=== PATIENT | female | born 1955 | race Caucasian/White ===

== ENCOUNTER 2022-09-28 05:25 | Day surgery (SDC) | payer OTHER ==
[~2022-09-28] VITALS: Ht 157.5 cm; Wt 84.4 kg
[~2022-09-28 05:25] MED LIST: AMLO-257 PO; ASPI-1450 PO; ATOR10TA PO; CARV25 PO; FERR325T27 PO; HYDR10TA31 PO; LISI-894 PO
[2022-09-28] MEDS ORDERED: SODIUM CHLORIDE 0.9% 1,000 ML IV ONE (05:30)
[2022-09-28] MEDS ORDERED: DiphenhydrAMINE HCL 50 MG CAPSULE ONE (05:36)
[2022-09-28] MEDS ORDERED: DIAZEPAM 5 MG TABLET ONE (05:36)
[2022-09-28] MEDS ORDERED: ASPIRIN 81 MG CHEWABLE TABLET ONE (05:37)
[2022-09-28 06:26] LABS: BASOPHILS % (AUTO) 0.8 % (0.0-2.0); EOSINOPHILS % (AUTO) 6.9 % (1.0-6.0); HEMATOCRIT 32.4 % (36-46); HEMOGLOBIN 10.9 g/dL (12.0-16.0); LYMPHOCYTES # (AUTO) 1.3 K/uL (1.0-4.8); LYMPHOCYTES % (AUTO) 23.6 % (22.0-44.0); MEAN CORPUSCULAR HEMOGLOBIN 29.1 pg (26.0-34.0); MEAN CORPUSCULAR HGB CONC 33.5 G/dL (31.0-37.0); MEAN CORPUSCULAR VOLUME 87 fL (80-100); MONOCYTES # (AUTO) 0.3 K/uL (0.1-1.0); MONOCYTES % (AUTO) 6.2 % (2.0-9.0); NEUTROPHILS # (AUTO) 3.4 K/uL (1.8-7.7); NEUTROPHILS % (AUTO) 62.5 % (40.0-70.0); PLATELET COUNT (AUTO) 201 K/uL (150-450); RED BLOOD CELL COUNT(AUTO) 3.73 MIL/uL (4.00-5.20); RED CELL DISTRIBUTION WIDTH 14.3 % (11.5-14.5)
[2022-09-28] MEDS ORDERED: SODIUM CHLORIDE 0.9% 1,000 ML ONE (06:46)
[2022-09-28 06:47] LABS: PROTHROMBIN TIME 11.1 SEC (9.4-11.6)
[2022-09-28] MEDS ORDERED: HEPARIN SODIUM 1000 UNITS/NS 1,000 ML ONE (07:04)
[2022-09-28] MEDS ORDERED: IOHEXOL 300 MG/ML 100 ML VIAL ONE (07:04)
[2022-09-28] MEDS ORDERED: LIDOCAINE/PF 1% 30 ML VIAL ONE (07:04)
[2022-09-28] MEDS ORDERED: SODIUM BICARBONATE 50 MEQ/50 ML VIAL ONE (07:04)
[2022-09-28 07:26] VITALS: BP 191/86
[2022-09-28] MEDS ORDERED: DiphenhydrAMINE HCL 50 MG CAPSULE PO ONE (07:30)
[2022-09-28] MEDS ORDERED: ASPIRIN 81 MG CHEWABLE TABLET PO ONE (07:30)
[2022-09-28] MEDS ORDERED: DIAZEPAM 5 MG TABLET PO ONE (07:30)
[2022-09-28] MEDS ORDERED: FentaNYL CITRATE PF 100 MCG/2 ML VIAL ONE (07:49)
[2022-09-28] MEDS ORDERED: MIDAZOLAM HCL 2 MG/2 ML VIAL ONE (07:50)
[2022-09-28] MEDS ORDERED: LIDOCAINE 1% 30 ML/SOD BICARB 8.4% 4 ML SQ ONE (08:00)
[2022-09-28] MEDS ORDERED: HEPARIN SODIUM 1000 UNITS/NS 1,000 ML IARTER ONE (08:00)
[2022-09-28] MEDS ORDERED: IOHEXOL 300 MG/ML 100 ML VIAL ICOR ONE (08:00)
[2022-09-28] MEDS ORDERED: MIDAZOLAM HCL 2 MG/2 ML VIAL IVP ONE ×2 (08:00→08:15)
[2022-09-28] MEDS ORDERED: FentaNYL CITRATE PF 100 MCG/2 ML VIAL IVP ONE ×2 (08:00→08:15)
[2022-09-28 08:23] VITALS: BP 151/71
== END 2022-09-28 13:05 | disposition home or self-care (01) ==
LOC: CATHLAB 05:25
PROVIDERS: ATTEND Internal Medicine Interventional Cardiology
DX: R94.39 Abnormal result of other cardiovascular function study (principal); I10 Essential (primary) hypertension; Z98.890 Other specified postprocedural states; E78.5 Hyperlipidemia, unspecified; E66.01 Morbid (severe) obesity due to excess calories; Z79.01 Long term (current) use of anticoagulants; Z98.49 Cataract extraction status, unspecified eye
CPT/HCPCS: 93458; 85025; 85610; 85730; 36415; 99152; 93005; C1760; J3010; J1644; J3490 ×2; J2250; J7030; Q9967